=== PATIENT | female | born 1980 | race African-American/Black ===

== ENCOUNTER 2018-12-04 11:35 | Emergency (ER) | payer MEDICAID ==
[~2018-12-04] VITALS: Ht 154.9 cm; Wt 78.0 kg
[2018-12-04] MEDS ORDERED: ACETAMINOPHEN 325MG TABLET PO STA (13:09)
[2018-12-04] MEDS ORDERED: ASPIRIN 81MG TABLET PO ONE (13:15)
[2018-12-04 14:23] LABS: BASOPHILS % 0.8 % (0.0-2.0); EOSINOPHILS % 1.4 % (0.0-5.0); HEMATOCRIT. 34.2 % (36.0-48.0); HEMOGLOBIN. 11.5 g/dL (12.0-16.0); LYMPHOCYTES % 20.4 % (20.0-50.0); MEAN CORPUSCULAR HEMOGLOBIN 28.5 pg (28.0-32.0); MEAN CORPUSCULAR VOLUME 85.2 fL (81.0-99.0); MEAN PLATELET VOLUME 7.4 fl (7.4-10.4); MONOCYTES % 7.8 % (2.0-8.0); NEUTROPHILS % 69.6 % (40.0-76.0); PLATELET 356 x1000/uL (130-400); RED BLOOD CELL COUNT 4.02 mill/uL (4.2-5.4); RED CELL DISTRIBUTION WIDTH 13.5 % (11.6-14.6)
[2018-12-04 14:29] LABS: CHLORIDE 109 mEq/L (98-107)
[2018-12-04 14:35] LABS: HCG SCREEN NEGATIVE
[2018-12-04 15:35] VITALS: BP 119/65
== END 2018-12-04 15:40 | disposition home or self-care (01) ==
LOC: ER 11:35
DX: R07.9 Chest pain, unspecified (principal); R10.13 Epigastric pain; Z90.49 Acquired absence of other specified parts of digestive tract
CPT/HCPCS: 36415; 71045; 81025; 84484; 84703; 93005; 99284